=== PATIENT | female | born 1990 | race Caucasian/White ===

== ENCOUNTER → 2025-01-13 | Outpatient (CLI) | payer MEDICAID ==
--- NOTE | 2025-01-14 06:18 | [facility] CONSULT REPORT ---
[facility] Procedure Note [facility] Procedure Note Consult [facility] Note # Demographics Type of EEG Read: - Routine EEG - video Patient Location: Outpatient First Name: Kenzie Last Name: Nic Date of : 1990 Age: 34 Gender: Female Facility: [facility] Time of Initial Page (): 01/13/2025 11:54 First Contact with Site (): 01/13/2025 11:55 # EEG Interpretation Start Time of EEG Read (): 01/14/2025 09:52 Stop Time of EEG Read (): 01/14/2025 10:12 Duration: 0h 20m Technical Details: - The EEG electrodes were placed using the standard International 10-20 system of electrode placement. Video and an accessory EKG lead were used during the course of this study. - This study was recorded using the [employer] EEG software Indication: Possible seizure # Description Photic Stimulation: NOT Performed Hyperventilation: NOT performed Phases Captured: - awake - drowsy Symmetry: symmetric Posterior Dominant Rhythm: The record is continuous, of normal amplitude and bilaterally symmetrical. There is a well-developed posterior dominant rhythm at 10-11 Hz. There is a moderate amount of diffuse low amplitude 15-25 Hz beta activity and an appropriate amount of 4-7 Hz theta activity during wakefulness. No significant <4 Hz delta activity is present during wakefulness. With drowsiness, there is attenuation of the background alpha activity and a shift to slower frequencies. Amplitude: normal Reactivity: yes Variability: yes Continuity: continuous EKG: NSR # Abnormalities Epileptiform Abnormalities: - NOT present Focal Slowing: no Seizure: - NOT present No push button events # Impression Impression: normal # Clinical Correlation Clinical Correlation: A normal EEG does not exclude nor support the diagnosis of epilepsy. Additional Comments: Clinical correlation is recommended # Demographics First Name: Kenzie Last Name: Nic Facility: [facility] CLARE LYMAN MD Jan 14, 2025 06:18
== END | disposition home or self-care (01) ==
LOC: RAD 09:05
PROVIDERS: ATTEND Nurse Practitioner Family
DX: R56.9 Unspecified convulsions (principal)
CPT/HCPCS: 95816